=== PATIENT | male | born 1955 | race African-American/Black ===

== ENCOUNTER 2019-03-01 00:30 | Inpatient (IN) | payer MEDICAID ==
[2019-03-01] VITALS (8 sets, daily range): BP systolic 128–175; BP diastolic 51–88
[~2019-03-01] VITALS: Ht 170.2 cm; Wt 139.3 kg
[~2019-03-01 00:30] MED LIST: ALBU18HF2 IH; CITA40TA22 PO; LOSA1TAB34 PO; MOME13HF2 IH; P20 PO; QUET100T PO; SITA1TAB8 PO
[2019-03-01] MEDS ORDERED: ALBUTEROL (0.083%) 2.5MG/3ML NEB HHN STA (00:50)
[2019-03-01] MEDS ORDERED: METHYLPREDNISOLONE SOD SUCC 125 MG/2 ML VIAL IV STA (00:50)
[2019-03-01] MEDS ORDERED: IPRATROPIUM BROMIDE (0.02%) 0.5MG/2.5ML NEB HHN STA (00:50)
[2019-03-01] MEDS ORDERED: ASPIRIN 81MG TABLET PO ONE (01:00)
[2019-03-01] MEDS ORDERED: MAGNESIUM 2 G PREMIX 50 ML IV ONE (01:00)
[2019-03-01 01:19] LABS: CHLORIDE 101 mEq/L (98-107)
[2019-03-01 01:21] LABS: HEMATOCRIT. 51.9 % (42.0-52.0); HEMOGLOBIN. 16.1 g/dL (14.0-18.0); MEAN CORPUSCULAR HEMOGLOBIN 29.5 pg (28.0-32.0); MEAN CORPUSCULAR VOLUME 94.9 fL (80.0-94.0); MEAN PLATELET VOLUME 7.7 fl (7.4-10.4); PLATELET 222 x1000/uL (130-400); RED BLOOD CELL COUNT 5.47 mill/uL (4.7-6.1); RED CELL DISTRIBUTION WIDTH 18.1 % (11.6-14.6)
[2019-03-01 02:17] LABS: NUCLEATED RED BLOOD CELLS 6 /100 WBC
[2019-03-01 02:18] LABS: PLATELET ESTIMATE NORMAL
[2019-03-01] MEDS ORDERED: HEPARIN 25,000 UNITS PREMIX 500 ML IV PRN (02:30)
[2019-03-01] MEDS ORDERED: HEPARIN 5000 UNITS/ML VIAL IV SCH (02:30)
[2019-03-01] MEDS ORDERED: FUROSEMIDE 40MG/4ML VIAL IVP ONE (02:30)
[2019-03-01] MEDS ORDERED: FUROSEMIDE 40MG/4ML VIAL IVP SCH ×2 (09:00→09:15)
[2019-03-01] MEDS ORDERED: IPRATROPIUM/ALBUTEROL 0.5-3(2.5)MG/3ML NEB ONE (09:21)
[2019-03-01 09:37] LABS: BG BASE EXCESS 2.9 mmol/L (-2.0-2.0); BG CARBOXYHEMOGLOBIN 3.3 % (0.5-1.5); BG DEOXYHEMOGLOBIN 15.7 % (0.0-5.0); BG FRACTION INSPIRED OXYGEN 36; BG HCO3 ACT 35.5 mmol/L (22.0-26.0); BG METHEMOGLOBIN 0.4 % (0.0-1.5); BG OXYGEN SATURATION 83.7 % (92.0-98.5); BG OXYHEMOGLOBIN 80.6 % (94.0-97.0); BG PCO2 95.2 mmHg (35.0-45.0); BG PO2 60.3 mmHg (75.0-100.0); BG SAMPLE SITE RIGHT RADIAL; BG TOTAL HEMOGLOBIN 17.7 g/dL (12.0-18.0); BG VENT MODE NASAL CANNULA
[2019-03-01] MEDS: ASPIRIN 81MG TABLET PO SCH (10:26)
[2019-03-01] MEDS: AMLODIPINE 5MG TABLET PO SCH ×2 (10:26→20:25)
[2019-03-01] MEDS: NITROGLYCERIN OINT 1GM/INCH UDPKT TD SCH ×2 (10:26→16:49)
[2019-03-01] MEDS: METHYLPREDNISOLONE SOD SUCC 40 MG/ML VIAL IV SCH ×2 (10:27→17:48)
[2019-03-01 11:16] LABS: CREATINE KINASE MB FRACTION 8.6 ng/mL (0.5-3.6)
[2019-03-01 13:45] LABS: BG BASE EXCESS 0.2 mmol/L (-2.0-2.0); BG BILEVEL POS AIRWAY PRESSURE 15/5; BG CARBOXYHEMOGLOBIN 2.7 % (0.5-1.5); BG DEOXYHEMOGLOBIN 13.3 % (0.0-5.0); BG FRACTION INSPIRED OXYGEN 30; BG HCO3 ACT 30.5 mmol/L (22.0-26.0); BG METHEMOGLOBIN 0.2 % (0.0-1.5); BG OXYGEN SATURATION 86.3 % (92.0-98.5); BG OXYHEMOGLOBIN 83.8 % (94.0-97.0); BG PCO2 74.2 mmHg (35.0-45.0); BG PH 7.232 (7.350-7.450); BG PO2 61.3 mmHg (75.0-100.0); BG SAMPLE SITE RIGHT RADIAL; BG TOTAL HEMOGLOBIN 17.3 g/dL (12.0-18.0); BG VENT MODE MASK - BIPAP
[2019-03-01 14:16] LABS: CREATINE KINASE 374 IU/L (39-308)
[2019-03-01] MEDS: FUROSEMIDE 40MG/4ML VIAL IVP SCH (15:29)
[2019-03-01] MEDS: LEVOFLOXACIN 750MG PREMIX 150 ML IV SCH (15:30)
[2019-03-01 16:14] LABS: BG BASE EXCESS 2.4 mmol/L (-2.0-2.0); BG BILEVEL POS AIRWAY PRESSURE 15/5; BG DEOXYHEMOGLOBIN 6.3 % (0.0-5.0); BG FRACTION INSPIRED OXYGEN 50; BG HCO3 ACT 33.8 mmol/L (22.0-26.0); BG METHEMOGLOBIN 0.4 % (0.0-1.5); BG OXYGEN SATURATION 93.5 % (92.0-98.5); BG OXYHEMOGLOBIN 90.3 % (94.0-97.0); BG PCO2 84.7 mmHg (35.0-45.0); BG PH 7.219 (7.350-7.450); BG PO2 82.8 mmHg (75.0-100.0); BG SAMPLE SITE RIGHT RADIAL; BG TOTAL HEMOGLOBIN 17.2 g/dL (12.0-18.0); BG VENT MODE MASK - BIPAP
[2019-03-01] MEDS: IPRATROPIUM/ALBUTEROL 0.5-3(2.5)MG/3ML NEB HHN SCH (20:27)
[2019-03-01 20:59] LABS: *AMPHETAMINES SCREEN URINE NEGATIVE (NEGATIVE)
[2019-03-01 21:00] LABS: *BARBITURATES SCREEN URINE NEGATIVE (NEGATIVE); *BENZODIAZEPINES SCREEN URINE NEGATIVE (NEGATIVE); *COCAINE SCREEN URINE NEGATIVE (NEGATIVE); METHADONE URINE SCREEN NEGATIVE (NEGATIVE); OPIATES URINE SCREEN NEGATIVE (NEGATIVE)
[2019-03-01 21:01] LABS: CANNABINOID URINE SCREEN NEGATIVE (NEGATIVE); PHENCYCLIDINE URINE SCREEN NEGATIVE (NEGATIVE)
[2019-03-01 23:16] LABS: CREATINE KINASE 207 IU/L (39-308)
[2019-03-02] VITALS (9 sets, daily range): BP systolic 108–196; BP diastolic 37–91
[2019-03-02] MEDS: IPRATROPIUM/ALBUTEROL 0.5-3(2.5)MG/3ML NEB HHN SCH ×6 (00:37→20:22)
[2019-03-02] MEDS: FUROSEMIDE 40MG/4ML VIAL IVP SCH ×4 (00:41→22:09)
[2019-03-02] MEDS: NITROGLYCERIN OINT 1GM/INCH UDPKT TD SCH ×4 (00:43→22:09)
[2019-03-02] MEDS: METHYLPREDNISOLONE SOD SUCC 40 MG/ML VIAL IV SCH ×3 (01:20→18:52)
[2019-03-02 07:02] LABS: HEMATOCRIT. 50.6 % (42.0-52.0); HEMOGLOBIN. 15.6 g/dL (14.0-18.0); MEAN CORPUSCULAR VOLUME 97.2 fL (80.0-94.0); MEAN PLATELET VOLUME 7.9 fl (7.4-10.4); PLATELET 247 x1000/uL (130-400); RED BLOOD CELL COUNT 5.21 mill/uL (4.7-6.1); RED CELL DISTRIBUTION WIDTH 18.1 % (11.6-14.6)
[2019-03-02 08:53] LABS: BG BILEVEL POS AIRWAY PRESSURE 15/5; BG CARBOXYHEMOGLOBIN 1.2 % (0.5-1.5); BG HCO3 ACT 41.5 mmol/L (22.0-26.0); BG METHEMOGLOBIN 0.6 % (0.0-1.5); BG OXYHEMOGLOBIN 97.2 % (94.0-97.0); BG PCO2 120.2 mmHg (35.0-45.0); BG PH 7.156 (7.350-7.450); BG PO2 172.3 mmHg (75.0-100.0); BG SAMPLE SITE RIGHT RADIAL; BG TOTAL HEMOGLOBIN 16.3 g/dL (12.0-18.0); BG VENT MODE MASK - BIPAP; BG VENT RATE 16 set
[2019-03-02] MEDS: ASPIRIN 81MG TABLET PO SCH (09:33)
[2019-03-02] MEDS: AMLODIPINE 5MG TABLET PO SCH ×2 (09:34→22:08)
[2019-03-02 10:51] LABS: NUCLEATED RED BLOOD CELLS 1 /100 WBC; PLATELET ESTIMATE NORMAL
[2019-03-02] MEDS ORDERED: SODIUM POLYSTYRENE SULFONATE 15 G/60 ML BOT PO NR ×2 (11:00→12:00)
[2019-03-02 12:25] LABS: BG BASE EXCESS 6.9 mmol/L (-2.0-2.0); BG BILEVEL POS AIRWAY PRESSURE ST=18/5; BG CARBOXYHEMOGLOBIN 1.6 % (0.5-1.5); BG DEOXYHEMOGLOBIN 8.9 % (0.0-5.0); BG FRACTION INSPIRED OXYGEN 40; BG HCO3 ACT 37.7 mmol/L (22.0-26.0); BG METHEMOGLOBIN 0.4 % (0.0-1.5); BG OXYGEN SATURATION 90.9 % (92.0-98.5); BG OXYHEMOGLOBIN 89.1 % (94.0-97.0); BG PCO2 83.6 mmHg (35.0-45.0); BG PH 7.272 (7.350-7.450); BG PO2 67.5 mmHg (75.0-100.0); BG PRESSURE SUPPORT 13; BG SAMPLE SITE RIGHT RADIAL; BG TOTAL HEMOGLOBIN 16.1 g/dL (12.0-18.0); BG VENT MODE MASK - BIPAP; BG VENT RATE 20 set
[2019-03-02] MEDS ORDERED: HYDROCODONE/ACETAMINOPHEN 5/325MG TABLET PO PRN (14:15)
[2019-03-02] MEDS ORDERED: DEXTROSE 50% WATER 50ML SYRINGE IV PRN (14:15)
[2019-03-02 17:24] LABS: CREATINE KINASE 183 IU/L (39-308)
[2019-03-02] MEDS: BLOOD SUGAR DIAGNOSTIC STRIP TEST SCH ×2 (17:30→21:00)
[2019-03-02] MEDS: INSULIN LISPRO 100 UNITS/ML SUBCUT SCH ×2 (18:56→22:24)
[2019-03-02] MEDS: BUDESONIDE 0.5MG/2ML NEB HHN SCH (20:22)
[2019-03-02] MEDS: FAMOTIDINE 20MG/2ML VIAL IV SCH (22:07)
[2019-03-02] MEDS: HEPARIN 5000 UNITS/ML VIAL SUBCUT SCH (22:07)
[2019-03-02 23:51] LABS: CREATINE KINASE 314 IU/L (39-308)
[2019-03-03] VITALS (12 sets, daily range): BP systolic 115–183; BP diastolic 49–123
[2019-03-03] MEDS: IPRATROPIUM/ALBUTEROL 0.5-3(2.5)MG/3ML NEB HHN SCH ×6 (00:28→20:59)
[2019-03-03] MEDS: METHYLPREDNISOLONE SOD SUCC 40 MG/ML VIAL IV SCH ×3 (02:26→21:30)
[2019-03-03] MEDS: FUROSEMIDE 40MG/4ML VIAL IVP SCH ×3 (05:47→21:30)
[2019-03-03] MEDS: NITROGLYCERIN OINT 1GM/INCH UDPKT TD SCH ×3 (05:51→21:32)
[2019-03-03 06:22] LABS: HEMATOCRIT 52.2 % (42.0-52.0); HEMOGLOBIN 16.4 g/dL (14.0-18.0); MEAN CORPUSCULAR HEMOGLOBIN 29.8 pg (28.0-32.0); MEAN CORPUSCULAR VOLUME 94.9 fL (80.0-94.0); PLATELET 230 x1000/uL (130-400); RED CELL DISTRIBUTION WIDTH 18.2 % (11.6-14.6)
[2019-03-03 06:29] LABS: CHLORIDE 95 mEq/L (98-107)
[2019-03-03] MEDS: BLOOD SUGAR DIAGNOSTIC STRIP TEST SCH ×4 (07:30→21:00)
[2019-03-03 08:50] LABS: BG BASE EXCESS 12.8 mmol/L (-2.0-2.0); BG CARBOXYHEMOGLOBIN 1.7 % (0.5-1.5); BG DEOXYHEMOGLOBIN 11.1 % (0.0-5.0); BG FRACTION INSPIRED OXYGEN 30; BG HCO3 ACT 43.9 mmol/L (22.0-26.0); BG METHEMOGLOBIN 0.4 % (0.0-1.5); BG OXYGEN SATURATION 88.7 % (92.0-98.5); BG OXYHEMOGLOBIN 86.8 % (94.0-97.0); BG PCO2 85.9 mmHg (35.0-45.0); BG PH 7.326 (7.350-7.450); BG PO2 61.2 mmHg (75.0-100.0); BG SAMPLE SITE LEFT RADIAL; BG TOTAL HEMOGLOBIN 16.9 g/dL (12.0-18.0); BG VENT MODE NASAL CANNULA
[2019-03-03] MEDS: FAMOTIDINE 20MG/2ML VIAL IV SCH ×2 (08:56→20:48)
[2019-03-03] MEDS: INSULIN LISPRO 100 UNITS/ML SUBCUT SCH ×4 (08:56→21:31)
[2019-03-03] MEDS: ASPIRIN 81MG TABLET PO SCH ×2 (08:57→17:50)
[2019-03-03] MEDS: AMLODIPINE 5MG TABLET PO SCH ×2 (08:57→20:49)
[2019-03-03] MEDS: HEPARIN 5000 UNITS/ML VIAL SUBCUT SCH ×2 (08:57→20:48)
[2019-03-03] MEDS ORDERED: NITROGLYCERIN OINT 1GM/INCH UDPKT TD ONE (14:08)
[2019-03-03] MEDS: LEVOFLOXACIN 750MG PREMIX 150 ML IV SCH (14:12)
[2019-03-03 16:50] LABS: BG BASE EXCESS 10.4 mmol/L (-2.0-2.0); BG BILEVEL POS AIRWAY PRESSURE ST=18/5; BG CARBOXYHEMOGLOBIN 1.6 % (0.5-1.5); BG DEOXYHEMOGLOBIN 5.3 % (0.0-5.0); BG FRACTION INSPIRED OXYGEN 40; BG HCO3 ACT 39.7 mmol/L (22.0-26.0); BG METHEMOGLOBIN 0.5 % (0.0-1.5); BG OXYGEN SATURATION 94.6 % (92.0-98.5); BG OXYHEMOGLOBIN 92.6 % (94.0-97.0); BG PH 7.353 (7.350-7.450); BG PO2 78.8 mmHg (75.0-100.0); BG PRESSURE SUPPORT 13; BG SAMPLE SITE LEFT RADIAL; BG TOTAL HEMOGLOBIN 16.1 g/dL (12.0-18.0); BG VENT MODE MASK - BIPAP; BG VENT RATE 20 set
[2019-03-03] MEDS: BUDESONIDE 0.5MG/2ML NEB HHN SCH (20:59)
[2019-03-04] VITALS (12 sets, daily range): BP systolic 96–158; BP diastolic 55–97
[2019-03-04] MEDS: IPRATROPIUM/ALBUTEROL 0.5-3(2.5)MG/3ML NEB HHN SCH ×6 (00:57→22:03)
[2019-03-04] MEDS: FUROSEMIDE 40MG/4ML VIAL IVP SCH ×3 (05:45→22:01)
[2019-03-04] MEDS: NITROGLYCERIN OINT 1GM/INCH UDPKT TD SCH ×3 (05:46→22:04)
[2019-03-04 06:30] LABS: HEMATOCRIT 52.8 % (42.0-52.0); HEMOGLOBIN 16.7 g/dL (14.0-18.0); MEAN CORPUSCULAR VOLUME 95.3 fL (80.0-94.0); PLATELET 230 x1000/uL (130-400); RED BLOOD CELL COUNT 5.54 mill/uL (4.7-6.1); RED CELL DISTRIBUTION WIDTH 18.8 % (11.6-14.6)
[2019-03-04 07:20] LABS: CHLORIDE 93 mEq/L (98-107)
[2019-03-04 07:34] LABS: LDL CHOLESTEROL 110 mg/dL (5-100)
[2019-03-04 07:36] LABS: HDL CHOLESTEROL 34 mg/dL (40-59)
[2019-03-04 07:37] LABS: T4 FREE 0.98 ng/dL (0.76-1.46)
[2019-03-04] MEDS: INSULIN LISPRO 100 UNITS/ML SUBCUT SCH ×4 (07:57→21:03)
[2019-03-04] MEDS: BLOOD SUGAR DIAGNOSTIC STRIP TEST SCH ×4 (07:57→21:38)
[2019-03-04 08:38] LABS: BG BASE EXCESS 13.8 mmol/L (-2.0-2.0); BG CARBOXYHEMOGLOBIN 1.7 % (0.5-1.5); BG DEOXYHEMOGLOBIN 9.2 % (0.0-5.0); BG FRACTION INSPIRED OXYGEN 28; BG HCO3 ACT 42.7 mmol/L (22.0-26.0); BG METHEMOGLOBIN 0.3 % (0.0-1.5); BG OXYGEN SATURATION 90.6 % (92.0-98.5); BG OXYHEMOGLOBIN 88.8 % (94.0-97.0); BG PCO2 69.7 mmHg (35.0-45.0); BG PH 7.405 (7.350-7.450); BG PO2 60.4 mmHg (75.0-100.0); BG SAMPLE SITE RIGHT RADIAL; BG TOTAL HEMOGLOBIN 16.9 g/dL (12.0-18.0); BG VENT MODE NASAL CANNULA
[2019-03-04] MEDS: BUDESONIDE 0.5MG/2ML NEB HHN SCH (09:09)
[2019-03-04] MEDS: FAMOTIDINE 20MG/2ML VIAL IV SCH ×2 (09:50→20:40)
[2019-03-04] MEDS: HEPARIN 5000 UNITS/ML VIAL SUBCUT SCH ×2 (09:51→20:40)
[2019-03-04] MEDS: ASPIRIN 81MG TABLET PO SCH ×2 (09:51→17:59)
[2019-03-04] MEDS: AMLODIPINE 5MG TABLET PO SCH ×2 (09:51→20:39)
[2019-03-04] MEDS: METHYLPREDNISOLONE SOD SUCC 40 MG/ML VIAL IV SCH ×2 (09:52→22:01)
[2019-03-04] MEDS ORDERED: INSULIN LISPRO 100 UNITS/ML SUBCUT NR (21:45)
[2019-03-05] VITALS (17 sets, daily range): BP systolic 81–160; BP diastolic 36–94
[2019-03-05] MEDS: LEVOFLOXACIN 750MG PREMIX 150 ML IV SCH ×2 (00:02→22:04)
[2019-03-05] MEDS: BUDESONIDE 0.5MG/2ML NEB HHN SCH ×3 (00:57→20:58)
[2019-03-05] MEDS: IPRATROPIUM/ALBUTEROL 0.5-3(2.5)MG/3ML NEB HHN SCH ×6 (00:57→20:57)
[2019-03-05] MEDS: FUROSEMIDE 40MG/4ML VIAL IVP SCH ×3 (05:47→21:45)
[2019-03-05] MEDS: NITROGLYCERIN OINT 1GM/INCH UDPKT TD SCH ×3 (05:48→22:04)
[2019-03-05 07:55] LABS: CHLORIDE 89 mEq/L (98-107)
[2019-03-05 07:56] LABS: HEMATOCRIT 50.9 % (42.0-52.0); HEMOGLOBIN 16.1 g/dL (14.0-18.0); MEAN CORPUSCULAR HEMOGLOBIN 29.4 pg (28.0-32.0); MEAN CORPUSCULAR VOLUME 92.9 fL (80.0-94.0); PLATELET 226 x1000/uL (130-400); RED BLOOD CELL COUNT 5.48 mill/uL (4.7-6.1); RED CELL DISTRIBUTION WIDTH 18.6 % (11.6-14.6)
[2019-03-05] MEDS: BLOOD SUGAR DIAGNOSTIC STRIP TEST SCH ×4 (07:57→21:50)
[2019-03-05] MEDS: INSULIN LISPRO 100 UNITS/ML SUBCUT SCH ×4 (08:03→22:00)
[2019-03-05] MEDS: METHYLPREDNISOLONE SOD SUCC 40 MG/ML VIAL IV SCH (09:50)
[2019-03-05] MEDS: FAMOTIDINE 20MG/2ML VIAL IV SCH ×2 (09:50→21:45)
[2019-03-05] MEDS: ASPIRIN 81MG TABLET PO SCH ×2 (09:50→17:02)
[2019-03-05] MEDS: HEPARIN 5000 UNITS/ML VIAL SUBCUT SCH ×2 (09:50→21:45)
[2019-03-05] MEDS: AMLODIPINE 5MG TABLET PO SCH ×2 (09:51→21:45)
[2019-03-05] MEDS ORDERED: INSULIN GLARGINE UD 100 UNITS/ML SYR SUBCUT NR (13:00)
[2019-03-06] VITALS (18 sets, daily range): BP systolic 117–207; BP diastolic 25–111
[2019-03-06] MEDS: IPRATROPIUM/ALBUTEROL 0.5-3(2.5)MG/3ML NEB HHN SCH ×6 (01:03→20:22)
[2019-03-06] MEDS: BLOOD SUGAR DIAGNOSTIC STRIP TEST SCH ×4 (05:53→21:22)
[2019-03-06] MEDS: INSULIN LISPRO 100 UNITS/ML SUBCUT SCH ×4 (05:53→22:04)
[2019-03-06] MEDS: FUROSEMIDE 40MG/4ML VIAL IVP SCH ×3 (06:27→21:17)
[2019-03-06] MEDS: NITROGLYCERIN OINT 1GM/INCH UDPKT TD SCH ×3 (06:29→21:23)
[2019-03-06 07:33] LABS: HEMATOCRIT 53.9 % (42.0-52.0); HEMOGLOBIN 16.9 g/dL (14.0-18.0); MEAN CORPUSCULAR VOLUME 92.6 fL (80.0-94.0); PLATELET 214 x1000/uL (130-400); RED BLOOD CELL COUNT 5.82 mill/uL (4.7-6.1); RED CELL DISTRIBUTION WIDTH 18.7 % (11.6-14.6)
[2019-03-06 07:37] LABS: CHLORIDE 93 mEq/L (98-107)
[2019-03-06] MEDS: AMLODIPINE 5MG TABLET PO SCH ×2 (09:04→21:23)
[2019-03-06] MEDS: FAMOTIDINE 20MG/2ML VIAL IV SCH ×2 (09:04→21:17)
[2019-03-06] MEDS: ASPIRIN 81MG TABLET PO SCH ×2 (09:04→17:47)
[2019-03-06] MEDS: HEPARIN 5000 UNITS/ML VIAL SUBCUT SCH ×2 (09:05→21:17)
[2019-03-06] MEDS: METHYLPREDNISOLONE SOD SUCC 40 MG/ML VIAL IV SCH (09:05)
[2019-03-06] MEDS: INSULIN GLARGINE UD 100 UNITS/ML SYR SUBCUT SCH (09:07)
[2019-03-06] MEDS: LEVOFLOXACIN 750MG PREMIX 150 ML IV SCH (22:11)
[2019-03-07] VITALS: BP 138/74
[2019-03-07] MEDS: IPRATROPIUM/ALBUTEROL 0.5-3(2.5)MG/3ML NEB HHN SCH ×3 (00:17→08:15)
[2019-03-07 04:00] VITALS: BP 156/79
[2019-03-07] MEDS: NITROGLYCERIN OINT 1GM/INCH UDPKT TD SCH (05:18)
[2019-03-07] MEDS: FUROSEMIDE 40MG/4ML VIAL IVP SCH (05:18)
[2019-03-07] MEDS: BLOOD SUGAR DIAGNOSTIC STRIP TEST SCH (06:41)
[2019-03-07 08:00] VITALS: BP 119/52
[2019-03-07] MEDS: AMLODIPINE 5MG TABLET PO SCH (08:22)
[2019-03-07] MEDS: ASPIRIN 81MG TABLET PO SCH (08:22)
[2019-03-07] MEDS: METHYLPREDNISOLONE SOD SUCC 40 MG/ML VIAL IV SCH (08:23)
[2019-03-07] MEDS: FAMOTIDINE 20MG/2ML VIAL IV SCH (08:23)
[2019-03-07] MEDS: HEPARIN 5000 UNITS/ML VIAL SUBCUT SCH (08:23)
[2019-03-07] MEDS: INSULIN LISPRO 100 UNITS/ML SUBCUT SCH (08:24)
[2019-03-07] MEDS: INSULIN GLARGINE UD 100 UNITS/ML SYR SUBCUT SCH (10:38)
[2019-03-07 10:50] VITALS: BP 124/63
== END 2019-03-07 11:55 | disposition home or self-care (01) | DRG 190 ==
LOC: ER 00:47 → 5WST 03:13 → ENRESERV 06:59 → 5EST 12:34
PROVIDERS: ADMIT Internal Medicine; ATTEND Internal Medicine
PROC: 5A09357 Assistance with Respiratory Ventilation, Less than 24 Consecutive Hours, Continuous Positive Airway Pressure (ICD-10-PCS; principal; 2019-03-01)
PROC: 5A09357 Assistance with Respiratory Ventilation, Less than 24 Consecutive Hours, Continuous Positive Airway Pressure (ICD-10-PCS; 2019-03-01)
PROC: 5A09357 Assistance with Respiratory Ventilation, Less than 24 Consecutive Hours, Continuous Positive Airway Pressure (ICD-10-PCS; 2019-03-01)
PROC: 5A09357 Assistance with Respiratory Ventilation, Less than 24 Consecutive Hours, Continuous Positive Airway Pressure (ICD-10-PCS; 2019-03-01)
DX: I21.4 Non-ST elevation (NSTEMI) myocardial infarction (principal); I50.33 Acute on chronic diastolic (congestive) heart failure; G93.40 Encephalopathy, unspecified; J18.9 Pneumonia, unspecified organism; N17.9 Acute kidney failure, unspecified; J96.01 Acute respiratory failure with hypoxia; J96.02 Acute respiratory failure with hypercapnia; E11.22 Type 2 diabetes mellitus with diabetic chronic kidney disease; I13.0 Hypertensive heart and chronic kidney disease with heart failure and stage 1 through stage 4 chronic kidney disease, or unspecified chronic kidney disease; I27.20 Pulmonary hypertension, unspecified; E66.2 Morbid (severe) obesity with alveolar hypoventilation; E87.2 Acidosis; J44.1 Chronic obstructive pulmonary disease with (acute) exacerbation; J44.0 Chronic obstructive pulmonary disease with (acute) lower respiratory infection; N18.9 Chronic kidney disease, unspecified; Z66 Do not resuscitate; R91.1 Solitary pulmonary nodule; E87.70 Fluid overload, unspecified; E87.5 Hyperkalemia; E78.5 Hyperlipidemia, unspecified; F17.200 Nicotine dependence, unspecified, uncomplicated; F31.30 Bipolar disorder, current episode depressed, mild or moderate severity, unspecified; I25.2 Old myocardial infarction; Z68.42 Body mass index [BMI] 45.0-49.9, adult; Z98.41 Cataract extraction status, right eye; Z98.42 Cataract extraction status, left eye; Z99.81 Dependence on supplemental oxygen
CPT/HCPCS: 36415; 36600; 71045; 71250; 76770; 80048; 80061; 80305; 82375; 82550; 82553; 82805; 82962; 83036; 83880; 84132; 84439; 84443; 84484; 85027; 93005; 93306; 93923; 93970; 94640; 94660; 96365; 96366; 96375; 99285; A6261; J1644; J1815; J1940; J1956; J2920; J2930; J3475; J3490; J7050; J7611; J7620; J7626

== ENCOUNTER 2019-06-05 18:31 | Inpatient (IN) | payer MEDICAID ==
[~2019-06-05] VITALS: Ht 182.9 cm; Wt 122.9 kg
[~2019-06-05 18:31] MED LIST changes: -P20 PO
[2019-06-05] MEDS ORDERED: NITROGLYCERIN 0.4MG TABLET SL SL ONE (19:00)
[2019-06-05] MEDS ORDERED: ASPIRIN 81MG TABLET PO ONE (19:00)
[2019-06-05 20:19] LABS: HEMATOCRIT. 49.8 % (42.0-52.0); HEMOGLOBIN. 15.6 g/dL (14.0-18.0); MEAN CORPUSCULAR HEMOGLOBIN 29.5 pg (28.0-32.0); MEAN CORPUSCULAR VOLUME 94.2 fL (80.0-94.0); MEAN PLATELET VOLUME 8.1 fl (7.4-10.4); PLATELET 245 x1000/uL (130-400); RED BLOOD CELL COUNT 5.29 mill/uL (4.7-6.1); RED CELL DISTRIBUTION WIDTH 18.5 % (11.6-14.6)
[2019-06-05 20:21] LABS: CHLORIDE 102 mEq/L (98-107)
[2019-06-05] MEDS ORDERED: FUROSEMIDE 40MG/4ML VIAL IVP ONE (20:30)
[2019-06-05] MEDS ORDERED: NITROGLYCERIN 0.1MG/HR PATCH TOP ONE (20:30)
[2019-06-05] MEDS ORDERED: ENOXAPARIN 150MG/ML SYR SUBCUT ONE (20:45)
[2019-06-05 20:50] LABS: BG BASE EXCESS 0.7 mmol/L (-2.0-2.0); BG BILEVEL POS AIRWAY PRESSURE 18/6; BG CARBOXYHEMOGLOBIN 2.8 % (0.5-1.5); BG DEOXYHEMOGLOBIN 8.3 % (0.0-5.0); BG FRACTION INSPIRED OXYGEN 100; BG HCO3 ACT 33.1 mmol/L (22.0-26.0); BG METHEMOGLOBIN 0.4 % (0.0-1.5); BG OXYGEN SATURATION 91.4 % (92.0-98.5); BG OXYHEMOGLOBIN 88.5 % (94.0-97.0); BG PCO2 93.6 mmHg (35.0-45.0); BG PH 7.166 (7.350-7.450); BG PO2 75.4 mmHg (75.0-100.0); BG SAMPLE SITE RIGHT RADIAL; BG TOTAL HEMOGLOBIN 16.7 g/dL (12.0-18.0); BG VENT MODE MASK - BIPAP
[2019-06-05 20:50] LABS: NUCLEATED RED BLOOD CELLS 7 /100 WBC; PLATELET ESTIMATE NORMAL
[2019-06-05] MEDS ORDERED: ALBUTEROL (0.083%) 2.5MG/3ML NEB HHN ONE (21:00)
[2019-06-05] MEDS ORDERED: NITROGLYCERIN 50MG PREMIX 250 ML IV ONE (21:00)
[2019-06-05] MEDS ORDERED: ALBUTEROL (0.083%) 2.5MG/3ML NEB ONE (21:02)
[2019-06-05 22:54] LABS: *BARBITURATES SCREEN URINE NEGATIVE (NEGATIVE); *BENZODIAZEPINES SCREEN URINE NEGATIVE (NEGATIVE); *COCAINE SCREEN URINE NEGATIVE (NEGATIVE); METHADONE URINE SCREEN NEGATIVE (NEGATIVE); OPIATES URINE SCREEN NEGATIVE (NEGATIVE)
[2019-06-05 22:55] LABS: *AMPHETAMINES SCREEN URINE NEGATIVE (NEGATIVE); CANNABINOID URINE SCREEN NEGATIVE (NEGATIVE); PHENCYCLIDINE URINE SCREEN NEGATIVE (NEGATIVE)
[2019-06-05 23:54] LABS: BG BASE EXCESS 2.6 mmol/L (-2.0-2.0); BG BILEVEL POS AIRWAY PRESSURE 20/6; BG CARBOXYHEMOGLOBIN 1.6 % (0.5-1.5); BG DEOXYHEMOGLOBIN 10.5 % (0.0-5.0); BG FRACTION INSPIRED OXYGEN 100; BG HCO3 ACT 34.6 mmol/L (22.0-26.0); BG METHEMOGLOBIN 0.6 % (0.0-1.5); BG OXYGEN SATURATION 89.3 % (92.0-98.5); BG OXYHEMOGLOBIN 87.3 % (94.0-97.0); BG PCO2 91.6 mmHg (35.0-45.0); BG PH 7.195 (7.350-7.450); BG PO2 66.9 mmHg (75.0-100.0); BG SAMPLE SITE LEFT RADIAL; BG TOTAL HEMOGLOBIN 16.6 g/dL (12.0-18.0); BG VENT MODE MASK - BIPAP; BG VENT RATE 20 set
[2019-06-06] VITALS (45 sets, daily range): BP systolic 102–154; BP diastolic 41–86
[2019-06-06 01:46] LABS: BG BASE EXCESS 6.4 mmol/L (-2.0-2.0); BG BILEVEL POS AIRWAY PRESSURE 20/6; BG CARBOXYHEMOGLOBIN 1.3 % (0.5-1.5); BG DEOXYHEMOGLOBIN 6.9 % (0.0-5.0); BG FRACTION INSPIRED OXYGEN 100; BG HCO3 ACT 42.2 mmol/L (22.0-26.0); BG METHEMOGLOBIN 0.6 % (0.0-1.5); BG OXYHEMOGLOBIN 91.2 % (94.0-97.0); BG PCO2 134.1 mmHg (35.0-45.0); BG PH 7.116 (7.350-7.450); BG SAMPLE SITE LEFT RADIAL; BG TOTAL HEMOGLOBIN 16.8 g/dL (12.0-18.0); BG VENT MODE MASK - BIPAP; BG VENT RATE 24 set
[2019-06-06] MEDS ORDERED: SUCCINYLCHOLINE CHLORIDE 200MG/10ML IV ONE (02:30)
[2019-06-06] MEDS ORDERED: ETOMIDATE 2MG/ML 10ML VIAL IV ONE (02:30)
[2019-06-06] MEDS: PROPOFOL 10MG/ML 100ML 100 ML IV SCH ×2 (03:07→04:30)
[2019-06-06 03:52] LABS: BG CARBOXYHEMOGLOBIN 1.2 % (0.5-1.5); BG DEOXYHEMOGLOBIN 4.3 % (0.0-5.0); BG FRACTION INSPIRED OXYGEN 100; BG HCO3 ACT 31.4 mmol/L (22.0-26.0); BG METHEMOGLOBIN 0.5 % (0.0-1.5); BG OXYGEN SATURATION 95.6 % (92.0-98.5); BG PCO2 57.8 mmHg (35.0-45.0); BG PH 7.353 (7.350-7.450); BG PO2 80.2 mmHg (75.0-100.0); BG SAMPLE SITE RIGHT BRACHIAL; BG TIDAL VOLUME(mL) 550 mL; BG TOTAL HEMOGLOBIN 16.3 g/dL (12.0-18.0); BG VENT MODE VENT - A/C; BG VENT RATE 24 set
[2019-06-06] MEDS ORDERED: ACETAMINOPHEN 325MG TABLET PO PRN (05:00)
[2019-06-06] MEDS ORDERED: DEXTROSE 50% WATER 50ML SYRINGE IV PRN (05:00)
[2019-06-06 06:18] LABS: HEMATOCRIT. 45.4 % (42.0-52.0); HEMOGLOBIN. 14.5 g/dL (14.0-18.0); MEAN CORPUSCULAR HEMOGLOBIN 29.9 pg (28.0-32.0); MEAN CORPUSCULAR VOLUME 93.9 fL (80.0-94.0); MEAN PLATELET VOLUME 7.9 fl (7.4-10.4); PLATELET 204 x1000/uL (130-400); RED BLOOD CELL COUNT 4.84 mill/uL (4.7-6.1); RED CELL DISTRIBUTION WIDTH 17.9 % (11.6-14.6)
[2019-06-06] MEDS: PROPOFOL 10MG/ML 100ML 100 ML IV PRN ×6 (06:21→23:58)
[2019-06-06 06:31] LABS: CHLORIDE 103 mEq/L (98-107)
[2019-06-06] MEDS: IPRATROPIUM/ALBUTEROL 0.5-3(2.5)MG/3ML NEB HHN SCH ×3 (07:46→21:00)
[2019-06-06] MEDS ORDERED: BLOOD SUGAR DIAGNOSTIC STRIP TEST SCH (07:50)
[2019-06-06] MEDS: INSULIN LISPRO 100 UNITS/ML SUBCUT SCH ×5 (08:12→23:52)
[2019-06-06] MEDS: ENOXAPARIN 40MG/0.4ML SYR SUBCUT SCH ×2 (08:13→21:13)
[2019-06-06] MEDS: LOSARTAN POTASSIUM 50 MG TABLET PO SCH (08:13)
[2019-06-06 08:21] LABS: BG BASE EXCESS 4.1 mmol/L (-2.0-2.0); BG CARBOXYHEMOGLOBIN 1.2 % (0.5-1.5); BG FRACTION INSPIRED OXYGEN 100; BG HCO3 ACT 30.8 mmol/L (22.0-26.0); BG METHEMOGLOBIN 0.5 % (0.0-1.5); BG OXYGEN SATURATION 91.9 % (92.0-98.5); BG OXYHEMOGLOBIN 90.3 % (94.0-97.0); BG PCO2 53.8 mmHg (35.0-45.0); BG PH 7.376 (7.350-7.450); BG PO2 64.7 mmHg (75.0-100.0); BG SAMPLE SITE RIGHT RADIAL; BG TIDAL VOLUME(mL) 550 mL; BG TOTAL HEMOGLOBIN 16.2 g/dL (12.0-18.0); BG VENT MODE VENT - A/C; BG VENT RATE 20 set
[2019-06-06] MEDS ORDERED: FUROSEMIDE 20MG/2ML VIAL IVP SCH (09:00)
[2019-06-06] MEDS ORDERED: POTASSIUM CHLORIDE 20MEQ TABLET SR PO SCH (09:00)
[2019-06-06] MEDS ORDERED: FUROSEMIDE 40MG/4ML VIAL IVP NR (09:30)
[2019-06-06] MEDS: LORAZEPAM 2MG/ML CPJ IV PRN ×2 (09:51→13:31)
[2019-06-06] MEDS: NITROGLYCERIN OINT 1GM/INCH UDPKT TD SCH ×3 (10:56→23:52)
[2019-06-06 11:36] LABS: NUCLEATED RED BLOOD CELLS 9 /100 WBC
[2019-06-06] MEDS: BUDESONIDE 0.5MG/2ML NEB HHN SCH ×2 (11:48→20:55)
[2019-06-06] MEDS: BLOOD SUGAR DIAGNOSTIC STRIP TEST SCH ×3 (12:00→23:52)
[2019-06-06] MEDS ORDERED: IOHEXOL-300 100 ML BOTTLE ONE (15:08)
[2019-06-06] MEDS: FUROSEMIDE 100MG/10ML VIAL IVP SCH (17:59)
[2019-06-06] MEDS: POTASSIUM CHLORIDE 20MEQ TABLET SR PO SCH (18:00)
[2019-06-06] MEDS ORDERED: IPRATROPIUM/ALBUTEROL 0.5-3(2.5)MG/3ML NEB ONE (21:00)
[2019-06-07] VITALS (92 sets, daily range): BP systolic 94–148; BP diastolic 34–107
[2019-06-07] MEDS: IPRATROPIUM/ALBUTEROL 0.5-3(2.5)MG/3ML NEB HHN SCH ×6 (00:25→20:35)
[2019-06-07] MEDS: LORAZEPAM 2MG/ML CPJ IV PRN ×5 (00:37→23:35)
[2019-06-07] MEDS: PROPOFOL 10MG/ML 100ML 100 ML IV PRN ×3 (04:08→12:59)
[2019-06-07 05:19] LABS: BASOPHILS % 0.7 % (0.0-2.0); EOSINOPHILS % 1.4 % (0.0-5.0); HEMATOCRIT. 49.1 % (42.0-52.0); HEMOGLOBIN. 15.8 g/dL (14.0-18.0); LYMPHOCYTES % 10.8 % (20.0-50.0); MEAN CORPUSCULAR HEMOGLOBIN 29.7 pg (28.0-32.0); MEAN CORPUSCULAR VOLUME 92.5 fL (80.0-94.0); MEAN PLATELET VOLUME 8.2 fl (7.4-10.4); NEUTROPHILS % 76.1 % (40.0-76.0); PLATELET 222 x1000/uL (130-400); RED BLOOD CELL COUNT 5.31 mill/uL (4.7-6.1); RED CELL DISTRIBUTION WIDTH 18.1 % (11.6-14.6)
[2019-06-07 05:26] LABS: CHLORIDE 101 mEq/L (98-107)
[2019-06-07] MEDS: NITROGLYCERIN OINT 1GM/INCH UDPKT TD SCH ×4 (05:35→23:14)
[2019-06-07 05:39] LABS: LDL CHOLESTEROL 111 mg/dL (5-100)
[2019-06-07 05:40] LABS: CREATINE KINASE 117 IU/L (39-308); CREATINE KINASE MB FRACTION 1.8 ng/mL (0.5-3.6); HDL CHOLESTEROL 19 mg/dL (40-59)
[2019-06-07] MEDS: INSULIN LISPRO 100 UNITS/ML SUBCUT SCH ×3 (06:00→17:53)
[2019-06-07] MEDS: FUROSEMIDE 100MG/10ML VIAL IVP SCH ×2 (06:22→18:01)
[2019-06-07] MEDS: BLOOD SUGAR DIAGNOSTIC STRIP TEST SCH ×3 (06:22→17:53)
[2019-06-07] MEDS: BUDESONIDE 0.5MG/2ML NEB HHN SCH ×2 (07:57→20:25)
[2019-06-07] MEDS: POTASSIUM CHLORIDE 20MEQ TABLET SR PO SCH ×2 (08:50→18:01)
[2019-06-07] MEDS: ENOXAPARIN 40MG/0.4ML SYR SUBCUT SCH ×2 (08:50→20:33)
[2019-06-07] MEDS: LOSARTAN POTASSIUM 50 MG TABLET PO SCH ×2 (08:50→08:55)
[2019-06-07 09:00] LABS: BG BASE EXCESS 11.7 mmol/L (-2.0-2.0); BG CARBOXYHEMOGLOBIN 0.5 % (0.5-1.5); BG DEOXYHEMOGLOBIN 9.1 % (0.0-5.0); BG FRACTION INSPIRED OXYGEN 100; BG HCO3 ACT 37.8 mmol/L (22.0-26.0); BG METHEMOGLOBIN 0.4 % (0.0-1.5); BG OXYGEN SATURATION 90.8 % (92.0-98.5); BG PCO2 52.9 mmHg (35.0-45.0); BG PH 7.472 (7.350-7.450); BG PO2 60.7 mmHg (75.0-100.0); BG SAMPLE SITE RIGHT RADIAL; BG TIDAL VOLUME(mL) 550 mL; BG TOTAL HEMOGLOBIN 16.6 g/dL (12.0-18.0); BG VENT MODE VENT - A/C; BG VENT RATE 20 set
[2019-06-07] MEDS ORDERED: POTASSIUM CHLORIDE 20MEQ TABLET SR PO NR (11:00)
[2019-06-07] MEDS ORDERED: MAGNESIUM 2 G PREMIX 50 ML IV NR (12:00)
[2019-06-07] MEDS ORDERED: PROPOFOL 10MG/ML 100ML 100 ML IV PRN (16:30)
[2019-06-07] MEDS: HYDROMORPHONE HCL/PF 2MG/ML CPJ IV PRN ×2 (19:28→22:19)
[2019-06-08] VITALS (57 sets, daily range): BP systolic 45–149; BP diastolic 21–99
[2019-06-08] MEDS: BLOOD SUGAR DIAGNOSTIC STRIP TEST SCH ×5 (00:06→23:33)
[2019-06-08] MEDS: IPRATROPIUM/ALBUTEROL 0.5-3(2.5)MG/3ML NEB HHN SCH ×6 (00:53→20:09)
[2019-06-08] MEDS: HYDROMORPHONE HCL/PF 2MG/ML CPJ IV PRN ×2 (01:38→19:26)
[2019-06-08] MEDS: LORAZEPAM 2MG/ML CPJ IV PRN ×4 (03:39→16:38)
[2019-06-08 05:53] LABS: BASOPHILS % 0.5 % (0.0-2.0); EOSINOPHILS % 1.7 % (0.0-5.0); HEMATOCRIT. 47.6 % (42.0-52.0); LYMPHOCYTES % 14.2 % (20.0-50.0); MEAN CORPUSCULAR HEMOGLOBIN 29.2 pg (28.0-32.0); MEAN CORPUSCULAR VOLUME 92.7 fL (80.0-94.0); MEAN PLATELET VOLUME 8.1 fl (7.4-10.4); MONOCYTES % 13.4 % (2.0-8.0); NEUTROPHILS % 70.2 % (40.0-76.0); PLATELET 205 x1000/uL (130-400); RED BLOOD CELL COUNT 5.14 mill/uL (4.7-6.1); RED CELL DISTRIBUTION WIDTH 18.4 % (11.6-14.6)
[2019-06-08] MEDS: INSULIN LISPRO 100 UNITS/ML SUBCUT SCH ×5 (06:00→23:34)
[2019-06-08 06:06] LABS: CHLORIDE 102 mEq/L (98-107)
[2019-06-08] MEDS: NITROGLYCERIN OINT 1GM/INCH UDPKT TD SCH ×3 (06:16→17:27)
[2019-06-08] MEDS: FUROSEMIDE 100MG/10ML VIAL IVP SCH (06:19)
[2019-06-08] MEDS: BUDESONIDE 0.5MG/2ML NEB HHN SCH ×2 (07:55→20:09)
[2019-06-08] MEDS: LOSARTAN POTASSIUM 25 MG TABLET PO SCH (08:45)
[2019-06-08] MEDS: POTASSIUM CHLORIDE 20MEQ TABLET SR PO SCH ×2 (08:45→17:27)
[2019-06-08] MEDS: ENOXAPARIN 40MG/0.4ML SYR SUBCUT SCH ×2 (08:46→20:21)
[2019-06-08 09:27] LABS: BG BASE EXCESS 13.7 mmol/L (-2.0-2.0); BG DEOXYHEMOGLOBIN 7.5 % (0.0-5.0); BG FRACTION INSPIRED OXYGEN 100; BG HCO3 ACT 42.1 mmol/L (22.0-26.0); BG METHEMOGLOBIN 0.3 % (0.0-1.5); BG OXYGEN SATURATION 92.4 % (92.0-98.5); BG OXYHEMOGLOBIN 91.2 % (94.0-97.0); BG PCO2 67.2 mmHg (35.0-45.0); BG PH 7.415 (7.350-7.450); BG PO2 67.1 mmHg (75.0-100.0); BG SAMPLE SITE RIGHT RADIAL; BG TIDAL VOLUME(mL) 550 mL; BG TOTAL HEMOGLOBIN 16.4 g/dL (12.0-18.0); BG VENT MODE VENT - A/C; BG VENT RATE 14 set
[2019-06-08] MEDS: METHYLPREDNISOLONE SOD SUCC 40 MG/ML VIAL IV SCH ×2 (14:46→21:06)
[2019-06-08 15:22] LABS: CLARITY URINE CLEAR (CLEAR); COLOR URINE ORANGE (YELLOW); KETONES URINE TRACE (NEGATIVE); LEUKOCYTE ESTERASE URINE 1+ (NEGATIVE); NITRITE URINE POSITIVE (NEGATIVE); OCCULT BLOOD URINE 3+ (NEGATIVE); PH URINE 5.5 (4.5-8.0); PROTEIN URINE 1+ (NEGATIVE); SPECIFIC GRAVITY URINE 1.024 (1.005-1.030)
[2019-06-08 16:09] LABS: BG BASE EXCESS 10.7 mmol/L (-2.0-2.0); BG HCO3 ACT 38.1 mmol/L (22.0-26.0); BG METHEMOGLOBIN 0.4 % (0.0-1.5); BG OXYGEN SATURATION 94.9 % (92.0-98.5); BG OXYHEMOGLOBIN 93.6 % (94.0-97.0); BG PCO2 60.9 mmHg (35.0-45.0); BG PH 7.414 (7.350-7.450); BG PO2 76.4 mmHg (75.0-100.0); BG SAMPLE SITE RIGHT RADIAL; BG TIDAL VOLUME(mL) 550 mL; BG TOTAL HEMOGLOBIN 15.9 g/dL (12.0-18.0); BG VENT MODE VENT - A/C; BG VENT RATE 16 set
[2019-06-08] MEDS: PIPERACILLIN/TAZOBACTAM 3.375 G in DEXT 5% WATER 100 ML IV SCH ×2 (16:15→20:21)
[2019-06-08] MEDS: FUROSEMIDE 40MG/4ML VIAL IV SCH (17:27)
[2019-06-08 18:28] LABS: HEPATITIS B SURFACE ANTIGEN NEGATIVE
[2019-06-08] MEDS ORDERED: POTASSIUM CHLORIDE 20MEQ/PACKET PO NR (18:30)
[2019-06-08 18:58] LABS: HEPATITIS A AB IGM NEGATIVE (NEGATIVE)
[2019-06-08] MEDS: FAMOTIDINE 20MG/2ML VIAL IV SCH (20:21)
[2019-06-08] MEDS: MIDAZOLAM HCL 50 MG in DEXTROSE 5% WATER 40 ML IV PRN (20:22)
[2019-06-09] VITALS (59 sets, daily range): BP systolic 100–159; BP diastolic 19–112
[2019-06-09] MEDS: NITROGLYCERIN OINT 1GM/INCH UDPKT TD SCH ×5 (00:12→23:22)
[2019-06-09] MEDS: PIPERACILLIN/TAZOBACTAM 3.375 G in DEXT 5% WATER 100 ML IV SCH ×5 (00:12→23:22)
[2019-06-09] MEDS: IPRATROPIUM/ALBUTEROL 0.5-3(2.5)MG/3ML NEB HHN SCH ×6 (00:28→19:53)
[2019-06-09] MEDS: MIDAZOLAM HCL 50 MG in DEXTROSE 5% WATER 40 ML IV PRN ×3 (02:17→20:31)
[2019-06-09 05:38] LABS: HEMATOCRIT 49.6 % (42.0-52.0); HEMOGLOBIN 15.7 g/dL (14.0-18.0); MEAN CORPUSCULAR HEMOGLOBIN 29.5 pg (28.0-32.0); MEAN CORPUSCULAR VOLUME 93.3 fL (80.0-94.0); PLATELET 200 x1000/uL (130-400); RED BLOOD CELL COUNT 5.32 mill/uL (4.7-6.1); RED CELL DISTRIBUTION WIDTH 18.7 % (11.6-14.6)
[2019-06-09] MEDS: METHYLPREDNISOLONE SOD SUCC 40 MG/ML VIAL IV SCH ×3 (05:38→21:24)
[2019-06-09 06:05] LABS: CHLORIDE 101 mEq/L (98-107)
[2019-06-09] MEDS: FUROSEMIDE 40MG/4ML VIAL IV SCH ×2 (06:09→17:18)
[2019-06-09] MEDS: INSULIN LISPRO 100 UNITS/ML SUBCUT SCH ×4 (06:09→23:29)
[2019-06-09] MEDS: BLOOD SUGAR DIAGNOSTIC STRIP TEST SCH ×4 (06:10→23:22)
[2019-06-09] MEDS: BUDESONIDE 0.5MG/2ML NEB HHN SCH (07:51)
[2019-06-09 07:53] LABS: BG CARBOXYHEMOGLOBIN 1.9 % (0.5-1.5); BG DEOXYHEMOGLOBIN 4.9 % (0.0-5.0); BG HCO3 ACT 34.7 mmol/L (22.0-26.0); BG METHEMOGLOBIN 0.6 % (0.0-1.5); BG OXYHEMOGLOBIN 92.6 % (94.0-97.0); BG PH 7.418 (7.350-7.450); BG PO2 78.3 mmHg (75.0-100.0); BG SAMPLE SITE RIGHT RADIAL; BG TIDAL VOLUME(mL) 550 mL; BG TOTAL HEMOGLOBIN 16.6 g/dL (12.0-18.0); BG VENT MODE VENT - A/C; BG VENT RATE 16 set
[2019-06-09] MEDS ORDERED: ASPIRIN 81MG TABLET PO SCH (09:00)
[2019-06-09] MEDS: FAMOTIDINE 20MG/2ML VIAL IV SCH ×2 (09:23→20:29)
[2019-06-09] MEDS: LOSARTAN POTASSIUM 25 MG TABLET PO SCH (09:23)
[2019-06-09] MEDS: POTASSIUM CHLORIDE 20MEQ TABLET SR PO SCH ×2 (09:23→17:18)
[2019-06-09] MEDS: ENOXAPARIN 40MG/0.4ML SYR SUBCUT SCH ×2 (09:23→20:29)
[2019-06-09 09:41] LABS: INR 1.2; PARTIAL THROMBOPLASTIN TIME 28.5 sec (23.4-31.0); PROTHROMBIN TIME 12.5 sec (9.6-11.0)
[2019-06-09 13:02] LABS: BG CARBOXYHEMOGLOBIN 1.2 % (0.5-1.5); BG DEOXYHEMOGLOBIN 1.8 % (0.0-5.0); BG METHEMOGLOBIN 0.3 % (0.0-1.5); BG OXYGEN SATURATION 98.2 % (92.0-98.5); BG OXYHEMOGLOBIN 96.7 % (94.0-97.0); BG PCO2 58.3 mmHg (35.0-45.0); BG PH 7.443 (7.350-7.450); BG SAMPLE SITE RIGHT RADIAL; BG TIDAL VOLUME(mL) 550 mL; BG TOTAL HEMOGLOBIN 16.1 g/dL (12.0-18.0); BG VENT MODE VENT - A/C; BG VENT RATE 16 set
[2019-06-10] VITALS (63 sets, daily range): BP systolic 92–149; BP diastolic 29–139
[2019-06-10] MEDS: IPRATROPIUM/ALBUTEROL 0.5-3(2.5)MG/3ML NEB HHN SCH ×6 (00:19→20:02)
[2019-06-10] MEDS: MIDAZOLAM HCL 50 MG in DEXTROSE 5% WATER 40 ML IV PRN ×4 (05:01→23:43)
[2019-06-10] MEDS: BLOOD SUGAR DIAGNOSTIC STRIP TEST SCH ×4 (05:02→23:37)
[2019-06-10] MEDS: INSULIN LISPRO 100 UNITS/ML SUBCUT SCH ×4 (05:05→23:55)
[2019-06-10 05:37] LABS: CHLORIDE 103 mEq/L (98-107)
[2019-06-10 05:38] LABS: HEMATOCRIT 50.3 % (42.0-52.0); HEMOGLOBIN 15.7 g/dL (14.0-18.0); MEAN CORPUSCULAR HEMOGLOBIN 29.2 pg (28.0-32.0); MEAN CORPUSCULAR VOLUME 93.5 fL (80.0-94.0); PLATELET 210 x1000/uL (130-400); RED BLOOD CELL COUNT 5.38 mill/uL (4.7-6.1); RED CELL DISTRIBUTION WIDTH 18.2 % (11.6-14.6)
[2019-06-10] MEDS: PIPERACILLIN/TAZOBACTAM 3.375 G in DEXT 5% WATER 100 ML IV SCH ×4 (06:09→23:37)
[2019-06-10] MEDS: FUROSEMIDE 40MG/4ML VIAL IV SCH ×2 (06:09→17:27)
[2019-06-10] MEDS: NITROGLYCERIN OINT 1GM/INCH UDPKT TD SCH ×4 (06:09→23:37)
[2019-06-10] MEDS: METHYLPREDNISOLONE SOD SUCC 40 MG/ML VIAL IV SCH ×3 (06:09→21:04)
[2019-06-10] MEDS: LOSARTAN POTASSIUM 25 MG TABLET PO SCH (08:39)
[2019-06-10] MEDS: FAMOTIDINE 20MG/2ML VIAL IV SCH ×2 (09:04→21:04)
[2019-06-10] MEDS: POTASSIUM CHLORIDE 20MEQ TABLET SR PO SCH (09:04)
[2019-06-10] MEDS: ENOXAPARIN 40MG/0.4ML SYR SUBCUT SCH ×2 (09:05→21:05)
[2019-06-10 09:14] LABS: BG BASE EXCESS 15.8 mmol/L (-2.0-2.0); BG CARBOXYHEMOGLOBIN 1.1 % (0.5-1.5); BG DEOXYHEMOGLOBIN 3.4 % (0.0-5.0); BG FRACTION INSPIRED OXYGEN 90; BG HCO3 ACT 42.8 mmol/L (22.0-26.0); BG METHEMOGLOBIN 0.4 % (0.0-1.5); BG OXYGEN SATURATION 96.5 % (92.0-98.5); BG OXYHEMOGLOBIN 95.1 % (94.0-97.0); BG PCO2 58.3 mmHg (35.0-45.0); BG PH 7.484 (7.350-7.450); BG PO2 85.8 mmHg (75.0-100.0); BG SAMPLE SITE RIGHT RADIAL; BG TIDAL VOLUME(mL) 550 mL; BG TOTAL HEMOGLOBIN 17.2 g/dL (12.0-18.0); BG VENT MODE VENT - A/C; BG VENT RATE 16 set
[2019-06-10] MEDS ORDERED: POTASSIUM CHLORIDE 20MEQ TABLET SR PO SCH (11:00)
[2019-06-10] MEDS ORDERED: POTASSIUM CHLORIDE 20MEQ/PACKET PO ONE (12:15)
[2019-06-10] MEDS: POTASSIUM CHLORIDE 20MEQ/PACKET PO SCH (17:27)
[2019-06-11] VITALS (43 sets, daily range): BP systolic 108–151; BP diastolic 42–107
[2019-06-11] MEDS: IPRATROPIUM/ALBUTEROL 0.5-3(2.5)MG/3ML NEB HHN SCH ×6 (00:12→20:02)
[2019-06-11 05:30] LABS: CHLORIDE 105 mEq/L (98-107)
[2019-06-11 05:31] LABS: HEMATOCRIT. 50.4 % (42.0-52.0); HEMOGLOBIN. 15.5 g/dL (14.0-18.0); MEAN CORPUSCULAR HEMOGLOBIN 29.1 pg (28.0-32.0); MEAN CORPUSCULAR VOLUME 94.6 fL (80.0-94.0); MEAN PLATELET VOLUME 8.2 fl (7.4-10.4); PLATELET 217 x1000/uL (130-400); RED BLOOD CELL COUNT 5.33 mill/uL (4.7-6.1); RED CELL DISTRIBUTION WIDTH 18.8 % (11.6-14.6)
[2019-06-11] MEDS: METHYLPREDNISOLONE SOD SUCC 40 MG/ML VIAL IV SCH ×3 (05:57→21:25)
[2019-06-11] MEDS: NITROGLYCERIN OINT 1GM/INCH UDPKT TD SCH ×4 (05:58→23:31)
[2019-06-11] MEDS: BLOOD SUGAR DIAGNOSTIC STRIP TEST SCH ×4 (05:58→23:04)
[2019-06-11] MEDS: FUROSEMIDE 40MG/4ML VIAL IV SCH ×2 (05:58→17:03)
[2019-06-11] MEDS: PIPERACILLIN/TAZOBACTAM 3.375 G in DEXT 5% WATER 100 ML IV SCH ×4 (05:58→23:31)
[2019-06-11] MEDS: MIDAZOLAM HCL 50 MG in DEXTROSE 5% WATER 40 ML IV PRN (06:04)
[2019-06-11] MEDS: INSULIN LISPRO 100 UNITS/ML SUBCUT SCH ×4 (06:05→23:33)
[2019-06-11 07:43] LABS: BG BASE EXCESS 13.2 mmol/L (-2.0-2.0); BG CARBOXYHEMOGLOBIN 1.1 % (0.5-1.5); BG DEOXYHEMOGLOBIN 6.1 % (0.0-5.0); BG FRACTION INSPIRED OXYGEN 60; BG HCO3 ACT 41.7 mmol/L (22.0-26.0); BG METHEMOGLOBIN 0.1 % (0.0-1.5); BG OXYGEN SATURATION 93.8 % (92.0-98.5); BG OXYHEMOGLOBIN 92.7 % (94.0-97.0); BG PCO2 66.6 mmHg (35.0-45.0); BG PH 7.415 (7.350-7.450); BG PO2 73.4 mmHg (75.0-100.0); BG SAMPLE SITE RIGHT RADIAL; BG TIDAL VOLUME(mL) 550 mL; BG TOTAL HEMOGLOBIN 17.2 g/dL (12.0-18.0); BG VENT MODE VENT - A/C; BG VENT RATE 16 set
[2019-06-11] MEDS: ENOXAPARIN 40MG/0.4ML SYR SUBCUT SCH ×2 (08:49→20:13)
[2019-06-11] MEDS: POTASSIUM CHLORIDE 20MEQ/PACKET PO SCH ×2 (08:49→17:04)
[2019-06-11] MEDS: FAMOTIDINE 20MG/2ML VIAL IV SCH ×2 (08:49→20:13)
[2019-06-11] MEDS: LOSARTAN POTASSIUM 25 MG TABLET PO SCH (08:49)
[2019-06-11] MEDS ORDERED: MIDAZOLAM HCL 100 MG in DEXT 5% WATER 80 ML IV PRN (09:57)
[2019-06-11] MEDS: AMLODIPINE 2.5MG TABLET PO SCH (10:48)
[2019-06-11 13:45] LABS: BG BASE EXCESS 10.6 mmol/L (-2.0-2.0); BG CARBOXYHEMOGLOBIN 1.7 % (0.5-1.5); BG CPAP (cmH2O) 0 cm(H2O); BG DEOXYHEMOGLOBIN 4.4 % (0.0-5.0); BG HCO3 ACT 40.2 mmol/L (22.0-26.0); BG METHEMOGLOBIN 0.6 % (0.0-1.5); BG OXYGEN SATURATION 95.5 % (92.0-98.5); BG OXYHEMOGLOBIN 93.3 % (94.0-97.0); BG PCO2 73.5 mmHg (35.0-45.0); BG PH 7.356 (7.350-7.450); BG PO2 89.8 mmHg (75.0-100.0); BG SAMPLE SITE RIGHT RADIAL; BG TOTAL HEMOGLOBIN 17.2 g/dL (12.0-18.0); BG VENT MODE VENT - CPAP
[2019-06-11 16:04] LABS: PLATELET ESTIMATE NORMAL
[2019-06-12] VITALS (33 sets, daily range): BP systolic 119–163; BP diastolic 40–98
[2019-06-12] MEDS: IPRATROPIUM/ALBUTEROL 0.5-3(2.5)MG/3ML NEB HHN SCH ×6 (00:01→19:57)
[2019-06-12] MEDS: BLOOD SUGAR DIAGNOSTIC STRIP TEST SCH ×4 (05:39→23:16)
[2019-06-12] MEDS: PIPERACILLIN/TAZOBACTAM 3.375 G in DEXT 5% WATER 100 ML IV SCH ×4 (05:42→23:15)
[2019-06-12] MEDS: NITROGLYCERIN OINT 1GM/INCH UDPKT TD SCH ×4 (05:42→23:16)
[2019-06-12] MEDS: METHYLPREDNISOLONE SOD SUCC 40 MG/ML VIAL IV SCH ×3 (05:42→21:05)
[2019-06-12] MEDS: INSULIN LISPRO 100 UNITS/ML SUBCUT SCH ×4 (05:43→23:17)
[2019-06-12 06:14] LABS: HEMATOCRIT 53.5 % (42.0-52.0); HEMOGLOBIN 16.7 g/dL (14.0-18.0); MEAN CORPUSCULAR HEMOGLOBIN 29.6 pg (28.0-32.0); MEAN CORPUSCULAR VOLUME 94.8 fL (80.0-94.0); PLATELET 202 x1000/uL (130-400); RED BLOOD CELL COUNT 5.65 mill/uL (4.7-6.1); RED CELL DISTRIBUTION WIDTH 18.3 % (11.6-14.6)
[2019-06-12] MEDS: FUROSEMIDE 40MG/4ML VIAL IV SCH ×2 (06:40→17:11)
[2019-06-12 06:46] LABS: CHLORIDE 98 mEq/L (98-107)
[2019-06-12 08:23] LABS: BG BASE EXCESS 5.3 mmol/L (-2.0-2.0); BG CARBOXYHEMOGLOBIN 2.1 % (0.5-1.5); BG FRACTION INSPIRED OXYGEN 40; BG METHEMOGLOBIN 0.5 % (0.0-1.5); BG OXYGEN SATURATION 91.8 % (92.0-98.5); BG OXYHEMOGLOBIN 89.4 % (94.0-97.0); BG PCO2 53.5 mmHg (35.0-45.0); BG PH 7.395 (7.350-7.450); BG PO2 68.8 mmHg (75.0-100.0); BG SAMPLE SITE RIGHT BRACHIAL; BG TOTAL HEMOGLOBIN 17.8 g/dL (12.0-18.0); BG VENT MODE NASAL CANNULA
[2019-06-12] MEDS: ENOXAPARIN 40MG/0.4ML SYR SUBCUT SCH (08:44)
[2019-06-12] MEDS: FAMOTIDINE 20MG/2ML VIAL IV SCH ×2 (08:44→21:05)
[2019-06-12] MEDS: POTASSIUM CHLORIDE 20MEQ/PACKET PO SCH ×2 (08:45→17:12)
[2019-06-12] MEDS: AMLODIPINE 2.5MG TABLET PO SCH (08:45)
[2019-06-12] MEDS: ENOXAPARIN 30MG/0.3ML SYR SUBCUT SCH (21:05)
[2019-06-13] VITALS: BP 129/75
[2019-06-13] MEDS: IPRATROPIUM/ALBUTEROL 0.5-3(2.5)MG/3ML NEB HHN SCH ×5 (00:48→16:00)
[2019-06-13 02:00] VITALS: BP 124/69
[2019-06-13 04:00] VITALS: BP 117/72
[2019-06-13 06:00] VITALS: BP 125/81
[2019-06-13] MEDS: METHYLPREDNISOLONE SOD SUCC 40 MG/ML VIAL IV SCH (06:22)
[2019-06-13] MEDS: FUROSEMIDE 40MG/4ML VIAL IV SCH (06:22)
[2019-06-13] MEDS: NITROGLYCERIN OINT 1GM/INCH UDPKT TD SCH ×2 (06:23→14:03)
[2019-06-13] MEDS: INSULIN LISPRO 100 UNITS/ML SUBCUT SCH ×2 (06:25→12:00)
[2019-06-13] MEDS: PIPERACILLIN/TAZOBACTAM 3.375 G in DEXT 5% WATER 100 ML IV SCH ×2 (06:27→14:34)
[2019-06-13] MEDS: BLOOD SUGAR DIAGNOSTIC STRIP TEST SCH ×2 (06:27→12:00)
[2019-06-13 07:30] VITALS: BP 154/78
[2019-06-13 07:36] LABS: HEMATOCRIT. 52.4 % (42.0-52.0); HEMOGLOBIN. 16.8 g/dL (14.0-18.0); MEAN CORPUSCULAR HEMOGLOBIN 29.7 pg (28.0-32.0); MEAN CORPUSCULAR VOLUME 92.9 fL (80.0-94.0); MEAN PLATELET VOLUME 8.1 fl (7.4-10.4); PLATELET 198 x1000/uL (130-400); RED BLOOD CELL COUNT 5.64 mill/uL (4.7-6.1); RED CELL DISTRIBUTION WIDTH 18.2 % (11.6-14.6)
[2019-06-13 07:58] VITALS: BP 154/78
[2019-06-13 08:12] LABS: CHLORIDE 93 mEq/L (98-107)
[2019-06-13] MEDS: POTASSIUM CHLORIDE 20MEQ/PACKET PO SCH (08:43)
[2019-06-13] MEDS: ENOXAPARIN 30MG/0.3ML SYR SUBCUT SCH (08:44)
[2019-06-13] MEDS: FAMOTIDINE 20MG/2ML VIAL IV SCH (08:44)
[2019-06-13] MEDS: AMLODIPINE 2.5MG TABLET PO SCH (08:45)
[2019-06-13 10:23] LABS: PLATELET ESTIMATE NORMAL
[2019-06-13] MEDS ORDERED: ASPIRIN 81MG TABLET PO SCH (14:30)
[2019-06-13] MEDS ORDERED: FAMOTIDINE 20MG TABLET PO SCH (17:00)
[2019-06-13] MEDS ORDERED: METHYLPREDNISOLONE SOD SUCC 40 MG/ML VIAL IV SCH (18:00)
== END 2019-06-13 17:49 | disposition home or self-care (01) | DRG 190 ==
LOC: ER 20:12 → CVICU 20:58 → ENRESERV 21:11 → CANRESERV 21:11 → EDBEDREQDT 06-06 00:41 → EDBEDREQTM 06-06 00:41 → EDBEDREQSVC 06-06 00:41 → ENRESERV 06-06 02:04 → UNDODISIN 06-06 14:40 → 3WST 06-13 00:24
PROVIDERS: ADMIT Ophthalmology; ATTEND Ophthalmology
PROC: 5A09457 Assistance with Respiratory Ventilation, 24-96 Consecutive Hours, Continuous Positive Airway Pressure (ICD-10-PCS; 2019-06-05)
PROC: 5A1955Z Respiratory Ventilation, Greater than 96 Consecutive Hours (ICD-10-PCS; principal; 2019-06-06)
PROC: 0BH17EZ Insertion of Endotracheal Airway into Trachea, Via Natural or Artificial Opening (ICD-10-PCS; 2019-06-06)
PROC: 0W993ZZ Drainage of Right Pleural Cavity, Percutaneous Approach (ICD-10-PCS; 2019-06-09)
PROC: 5A09357 Assistance with Respiratory Ventilation, Less than 24 Consecutive Hours, Continuous Positive Airway Pressure (ICD-10-PCS; 2019-06-12)
DX: I21.4 Non-ST elevation (NSTEMI) myocardial infarction (principal); J96.21 Acute and chronic respiratory failure with hypoxia; I50.33 Acute on chronic diastolic (congestive) heart failure; J18.9 Pneumonia, unspecified organism; J91.8 Pleural effusion in other conditions classified elsewhere; J43.9 Emphysema, unspecified; E87.2 Acidosis; E11.22 Type 2 diabetes mellitus with diabetic chronic kidney disease; I13.0 Hypertensive heart and chronic kidney disease with heart failure and stage 1 through stage 4 chronic kidney disease, or unspecified chronic kidney disease; E66.2 Morbid (severe) obesity with alveolar hypoventilation; I27.20 Pulmonary hypertension, unspecified; N18.3 Chronic kidney disease, stage 3 (moderate); F17.200 Nicotine dependence, unspecified, uncomplicated; F31.9 Bipolar disorder, unspecified; F41.9 Anxiety disorder, unspecified; K74.60 Unspecified cirrhosis of liver; E78.5 Hyperlipidemia, unspecified; J96.22 Acute and chronic respiratory failure with hypercapnia; R91.1 Solitary pulmonary nodule; Z98.42 Cataract extraction status, left eye; Z78.1 Physical restraint status; Z79.51 Long term (current) use of inhaled steroids; Z79.84 Long term (current) use of oral hypoglycemic drugs; Z79.899 Other long term (current) drug therapy; Z68.36 Body mass index [BMI] 36.0-36.9, adult; I25.2 Old myocardial infarction; Z98.41 Cataract extraction status, right eye; Z95.5 Presence of coronary angioplasty implant and graft
CPT/HCPCS: 32555; 36415; 36600; 71045; 71275; 80048; 80061; 80305; 81003; 82040; 82140; 82375; 82550; 82553; 82805; 82962; 83036; 83615; 83735; 83880; 84443; 84478; 84484; 85027; 85379; 86705; 86709; 86803; 87070; 87340; 88108; 88312; 93005; 93306; 93923; 93970; 94002; 94003; 94640; 94660; 97116; 97162; 97530; 99291; A6261; J1170; J1650; J1815; J1940; J2060; J2250; J2543; J2704; J2920; J3475; J3490; J7040; J7060; J7611; J7620; J7626; Q9967; A4315